=== PATIENT | male | born 1975 | race Caucasian/White ===

== ENCOUNTER 2020-09-26 13:50 | Emergency (ER) | payer SELFPAY ==
[2020-09-26] MEDS ORDERED: Lidocaine 1% w/Epinephrine 1:100K 20 ML VIAL ONE (14:09)
[2020-09-26] MEDS ORDERED: Boostrix 0.5 ML (Tdap) VIAL ONE ×2 (14:11→14:12)
== END 2020-09-26 14:34 | disposition home or self-care (01) ==
LOC: ERS 13:50
DX: S61.411A Laceration without foreign body of right hand, initial encounter (principal); F17.210 Nicotine dependence, cigarettes, uncomplicated; W26.8XXA Contact with other sharp object(s), not elsewhere classified, initial encounter
CPT/HCPCS: 12002; 90471; 90715